=== PATIENT | male | born 1960 | race Caucasian/White ===

== ENCOUNTER 2024-07-26 10:44 | Day surgery (SDC) | payer OTHER, SELFPAY ==
[2024-07-26] VITALS (20 sets, daily range): BP systolic 135–174; BP diastolic 75–98; BMI 26.3
[2024-07-26] MEDS: LOW STRENGTH ASPIRIN 324 MG PO (11:24)
[2024-07-26] MEDS: NSS 230 ML IV (11:25)
[2024-07-26] MEDS: NITROLINGUAL SPRAY 1 BOTTLE SL (11:27)
[2024-07-26 11:29] LABS: Glucose - Point of Care 167 mg/dl (70-99)
--- NOTE | 2024-07-26 13:07 | ITS.CL.CATH ---
[employer] - Catheterization
Cardiac Catheterization
Procedure Report:
CARDIAC CATHETERIZATION REPORT
Date of Procedure: 07/26/2024
Referring: Bradford Marshall MD
Indication: Angina of recent onset
�
HEMODYNAMIC DATA
AO: 109/70
LV: 125/10
There is a approximately 15 mmHg gradient across the aortic valve
�
LEFT VENTRICULOGRAPHY: Normal left ventricular wall motion with EF 64%
�
CORONARY ANGIOGRAPHY
Dominance: Right
Left Main: Normal
LAD: Tandem 50% proximal and 60-70% mid LAD lesions. There are two prominent endomyocardial bridge segments by a 10 mm segment of normal vessel. Each of the bridge segments has 80% systolic compression. The remainder of the LAD system
has trivial luminal disease.
Circumflex: Mild luminal irregularities in the circumflex proper. OM1 is small. OM 2 is large. OM 3 is a medium sized branch with 30-40% ostial and 30% proximal stenoses.
RCA: The RCA is dominant with mild luminal irregularities
FloWire testing: At the conclusion of the diagnostic study we proceeded with assessment of the LAD disease using pressure wire. Heparin was used for anticoagulation. A 6 [employer] wire was advanced through a EBU 3.75 guide catheter into the
LAD. iFR measurements were 0.75, 0.75, and 0.70. These are all consistent with flow-limiting disease. Pullback demonstrated the drop to be at the level of the 70% mid LAD lesion with some contribution from the 50% proximal LAD lesion.
Accordingly, decision was made to proceed with stenting.
Angioplasty: A 3.0 x 22 [place] BROOKE was deployed at 14 mark then postdilated with a 3.0 NC Euphora to 17 mark along the entire length of the stent. The final angiographic result was outstanding with no residual stenosis. There were no
procedural complications.
�
Closure Device: None-the procedure was performed via the right radial artery. The Jassi's test was normal prior to the procedure.
�
Radiation (mGy): 337
DAP (cm2.Gy): 22.9
Fluoroscopy time: 5.9 minutes
�
CONCLUSIONS
1:�Suspicion of mild aortic stenosis-this should be evaluated formally with echocardiography. Of note there is no visible calcification of the aortic valve raising a suspicion that this is a false positive finding
2:�Normal left ventricular wall motion with EF 64%
3. Single-vessel CAD as described involving the proximal and mid LAD. FloWire assessment demonstrates the LAD disease is significantly flow-limiting
4. Successful stenting of tandem 50% proximal and 70% mid LAD lesions using 3.0 x 22 [place] BROOKE with outstanding angiographic result
5. The importance of uninterrupted dual antiplatelet therapy for 12 months has been stressed to the patient via his son. He will need lifelong aspirin therapy
6. Continue risk factor modification efforts
�
�
Copy to: Bradford Marshall MD, Mandeep Meza MD
�
Bhavesh Chow MD, [facility], [facility]
--- NOTE | 2024-07-26 13:35 | PTCARENOTE ---
[employer] patient education packets printed in Sudanese for the following topics:
Plavix, Cardiac Stenting, Cardiac Stenting Discharge Instructions.
[2024-07-26 14:47] LABS: ACT-LR - POC > 397 Seconds (116-155)
--- NOTE | 2024-07-26 14:57 | W.PN.UPDATE ---
Update Note
Progress Note Update
63 yo male s/p PCI LAD x 1 BROOKE (same day). He had some mild chest discomfort initially post procedure, which is resolved, EKG no ST changes, no sob, jamie diet, voiding, Rad site c/d/i with TR band. He will be on DAPT ASA/Plavix. We will increase
atorvastatin to 40mg daily. He will hold Metformin 48 hrs post procedure. Cardiac rehab c/s. He will f/u Dr. Marshall in 2-4 weeks. He will d/c home after 545pm if rad site stable and seen by Guidera.
CONCLUSIONS
1:�Suspicion of mild aortic stenosis-this should be evaluated formally with echocardiography. Of note there is no visible calcification of the aortic valve raising a suspicion that this is a false positive finding
2:�Normal left ventricular wall motion with EF 64%
3. Single-vessel CAD as described involving the proximal and mid LAD. FloWire assessment demonstrates the LAD disease is significantly flow-limiting
4. Successful stenting of tandem 50% proximal and 70% mid LAD lesions using 3.0 x 22 [place] BROOKE with outstanding angiographic result
5. The importance of uninterrupted dual antiplatelet therapy for 12 months has been stressed to the patient via his son. He will need lifelong aspirin therapy
6. Continue risk factor modification efforts
�
�
Copy to: Bradford Marshall MD, Mandeep Meza MD
[2024-07-26] MEDS: NSS 1000 IV (15:47)
[2024-07-26 16:50] LABS: Glucose - Point of Care 161 mg/dl (70-99)
== END 2024-07-26 17:50 | disposition home or self-care (01) ==
LOC: CATH 10:44
PROVIDERS: ATTENDING PHYSICIAN Internal Medicine Cardiovascular Disease; FAMILY PHYSICIAN Internal Medicine; OTHER PHYSICIAN Internal Medicine Cardiovascular Disease
DX: I25.119 Atherosclerotic heart disease of native coronary artery with unspecified angina pectoris (principal); I10 Essential (primary) hypertension; E78.5 Hyperlipidemia, unspecified; E11.9 Type 2 diabetes mellitus without complications; Z82.49 Family history of ischemic heart disease and other diseases of the circulatory system; Z79.82 Long term (current) use of aspirin; Z79.84 Long term (current) use of oral hypoglycemic drugs; Z79.02 Long term (current) use of antithrombotics/antiplatelets
CPT/HCPCS: 93799; C1725; C1769; C1894; 82962; 85347; 93005; 93458; C1874; C9600; Q9967